=== PATIENT | female | born 1950 | race Caucasian/White ===

== ENCOUNTER → 2019-02-26 13:56 | Outpatient (CLI) | payer OTHER, SELFPAY | PROVIDERS: Visit Provider Ophthalmology | DX: Z22.322 Carrier or suspected carrier of Methicillin resistant Staphylococcus aureus (principal) | CPT/HCPCS: 87797 ==

== ENCOUNTER 2019-03-10 11:48 | Day surgery (SDC) | payer OTHER, SELFPAY ==
--- NOTE | 2019-03-08 14:16 | PM.PREOP ---
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 No Vancomycin needed prophylactically.
--- NOTE | 2019-03-08 14:17 | PM.OP.1 ---
Operative Date/Time/Diagnoses Date of procedure: 03/10/19 Time of procedure: 13:15 Procedure & Clinicians Procedure: Preoperative diagnoses: 1. 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 2. 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 Postoperative diagnoses: 1. Complex cataract removed by phacoemulsification with use of capsular dye use of capsular dye use of capsular dye and placement of posterior chamber intraocular lens. Procedure: Complex Phacoemulsification with posterior chamber intraocular lens implant and capsular dye. Surgeon: Janice Cooney MD Complications: None Specimen: None Implant: [id number]+21.0 Blood loss: None Anesthesia: Retrobulbar with monitored standby Description of procedure: Patient presents with a complaint of decreased vision due to cataract which is affecting activities of daily living. Advanced was diffuse cortical show and poor visibility. Denies trauma. The patient wants surgery to improve vision. 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 This was confirmed again prior to this surgery and therefore no prophylaxis is given. She has no current symptoms. She is a retired nurse. The patient was taken to the operating room and given IV sedation. A retrobulbar block consisting of 6 cc of 2% xylocaine without epinephrine mixed half and half with 0.5% Marcaine with 1 cc of hyaluronidase added is placed between the medial and lateral 1/3 of the inferior orbital rim. The eye is manually massaged for 30 sec, prepped using Betadine solution, and draped in the usual sterile fashion. Temporal approach was made, a 1 mm side-port incision was made 90? from the proposed clear corneal incision position. Phenylephrine 1.5% mixed with 1% xylocaine 0.2 cc was placed into the anterior chamber. An air bubble was placed followed by Visudyne capsular dye. The dye was then irrigated partially free of air bubbles. Viscoat followed by Healon was then placed. A 2.6 mm clear incision with a 2.6 mm blade was placed. A 360 degree capsulorrhexis style capsulotomy was then performed with a cystitome needle on a Healon greatly aided by the capsular dye. This zonules remained intact during the procedure. Hydrodelineation and hydrodissection were performed. The phacoemulsification unit is introduced, and sculpting notice used to groove the central lens. It is then removed in chopping mode. Epi nucleus is removed with epinuclear mode and irrigation aspiration was used to remove the peripheral cortex. The posterior capsule is polished. The intraocular lens is selected, inspected, power confirmed, and placed in the posterior chamber. The wound was stromally hydrated and tested for leaks, there was none and it was left sutureless. Vigamox 0.1 cc was placed into the anterior chamber. Kenalog 0.2 cc was placed in the superior subconjunctival space. A drop of antibiotic and was placed and the eye was patched and shielded. The patient was stable and returned to the recovery room in excellent condition. Dictated by: Janice Cooney MD Copy to: [facility]
[2019-03-10] MEDS: PROPARACAINE 0.5% OPHTH SOL 2 DROPS EYE-OP (12:20)
[2019-03-10] MEDS: CATARACT EYE COMPOUND (10 DROPS/SYRINGE) 3 DROPS EYE-OP (12:22)
[2019-03-10 12:24] VITALS: BP 151/90; PULSE 74; RESP 16; TEMP 36.5; O2SAT 99; BMI 21.1
--- NOTE | 2019-03-10 13:44 | SUR.OPER ---
Supine on eye stretcher, head on extension cradle secured with tape. Arms tucked at sides with blanket. Pillow under knees.
[2019-03-10] MEDS: ERYTHROMYCIN OPHTH 1 GM OINT 1 APPLIC EYE-LEFT (13:52)
[2019-03-10] MEDS: TRIAMCINOLONE 50 MG/5 ML VIAL INJ (13:53)
[2019-03-10] MEDS: PHENYLEPHRINE/LIDOCAINE VIAL (OR) 0.2 ML EYE-OP (13:53)
[2019-03-10] MEDS: LIDOCAINE 2% 4 ML, BUPIVACAINE 0.5% (PF) 4 ML, HYALURONIDASE 150 UNIT INJ (13:53)
[2019-03-10] MEDS: HYALURONATE SODIUM 10 MG/ML SYRINGE INJ (13:54)
[2019-03-10] MEDS: TRYPAN BLUE 0.5 ML SYRINGE INJ (13:54)
[2019-03-10] MEDS: CHONDROIDTIN/SOD HYALURONATE 1.05 ML SYRINGE INTRAOCULA (13:55)
[2019-03-10] MEDS: BALANCED SALT IRRIG SOLN NO.2 500 ML, EPINEPHrine 1 MG IRR (13:56)
== END 2019-03-10 14:41 ==
PROVIDERS: Family Provider Nurse Practitioner Family; PCP Nurse Practitioner Family; Visit Provider Ophthalmology
PROC: (CPT 66982; principal; 2019-03-10 13:15)
DX: H25.812 Combined forms of age-related cataract, left eye (principal)
CPT/HCPCS: 66982; J0171; J2704; J3301; J3470